=== PATIENT | female | born 2000 | race Caucasian/White ===

== ENCOUNTER 2019-10-31 10:57 | Inpatient (IN) ==
[2019-10-31] MEDS ORDERED: SODIUM CHLORIDE 0.9% 1000ML 1,000 ML IV ONE (11:36)
[2019-10-31 11:45] LABS: Basophils # (auto) 0.01 K/uL (0-0.2); Basophils % (auto) 0.1 %; Eosinophils # (auto) 0.14 K/uL (0-0.5); Eosinophils % (auto) 1.5 %; Hematocrit (blood only) 34.5 % (37-47); Hemoglobin 10.8 g/dL (12.0-16.0); Immature Granulocytes # (auto) 0.04 K/uL (0.00-0.02); Immature Granulocytes % (auto) 0.4 %; Lymphocytes % (auto) 13.9 %; Mean Corpuscular Hemoglobin 25.6 pg (25-34); Mean Corpuscular Hgb Conc 31.3 g/dL (32-36); Mean Corpuscular Volume 81.8 fL (80-100); Mean Platelet Volume 7.9 fL (7.4-10.4); Monocytes # (auto) 0.58 K/uL (0.11-0.59); Monocytes % (auto) 6.2 %; Neutrophils # (auto) 7.29 K/uL (1.4-6.5); Neutrophils % (auto) 77.9 %; Platelet Count 578 K/uL (130-400); RDW Coefficient of Variation 13.3 % (11.5-14.5); RDW Standard Deviation 40.3 fL (36.4-46.3); Red Blood Count 4.22 M/uL (4.2-5.4); White Blood Count 9.36 K/uL (4.8-10.8)
[2019-10-31 11:57] LABS: Albumin Level 2.8 gm/dl (3.4-5.0); BUN Creatinine Ratio 7.5 (10-20); Calcium 8.9 mg/dl (8.5-10.1); Creatinine Clr Calc Pharmacy 79.5 ml/min; Est GFR (African American) 101.9; Potassium 2.8 mmol/L (3.5-5.1)
[2019-10-31 11:59] LABS: Albumin Globulin Ratio 0.6 (0.9-2); Bilirubin,Total 0.3 mg/dl (0.2-1); C Reactive Protein 9.08 mg/dl (0-0.29); Globulin 4.6 gm/dl (2.5-4.0); Total Protein 7.4 gm/dl (6.4-8.2)
[2019-10-31] MEDS ORDERED: IOVERSOL 100ml IV ONE (14:09)
[2019-10-31] MEDS ORDERED: POTASSIUM CHLORIDE 20 MEQ TABCR PO STA (14:20)
[2019-10-31] MEDS ORDERED: POTASSIUM CHLORIDE / WTR 10 MEQ/100 ML PLCT IV ONE (14:20)
--- NOTE | 2019-10-31 14:22 | CT Scan Report ---
CT abd pelvis IV con only CLINICAL HISTORY: Generalized abdominal pain. History of ulcerative colitis. COMPARISON STUDY: October 15, 2019 TECHNIQUE: The patient was scanned in a dynamic helical fashion during intravenous administration of 94 cc of Optiray 320. A dose lowering technique was utilized adhering to the principles of ALARA. CT DOSE: 278.81 mGy.cm FINDINGS: Lower chest: The heart is normal in size and configuration, without pericardial effusion. The lung ba ses and pleural spaces are clear. Liver: The contrast-enhanced liver is normal in size, contour, and attenuation. There is no intrahepa tic biliary ductal dilatation. The hepatic veins and portal veins are patent. Gallbladder: Unremarkable. Spleen: Normal in size and attenuation. Pancreas: Unremarkable. Adrenal glands: Unremarkable. Kidneys: There is symmetric renal cortical enhancement. The kidneys are normal in size without hydron ephrosis. Bowel: There are no transition zones to indicate bowel obstruction. There is persistent diffuse colon ic wall thickening slightly less pronounced than when compared the preceding study. There is no pneum atosis. There is no portal venous gas. The findings are consistent with the clinical history of ulcer ative colitis. There is no evidence of acute appendicitis. Peritoneum: There is trace free pelvic fluid. There is no free intraperitoneal air Vasculature: The abdominal aorta is normal in course and caliber. Adenopathy: There are prominent ileocolic lymph nodes, likely reactive. Pelvic viscera: The bladder, and pelvic viscera are unremarkable. Skeletal structures: No destructive osseous lesions are seen. IMPRESSION: 1. No evidence of bowel obstruction. No evidence of free air 2. Persistent but slightly less pronounced diffuse colonic wall thickening, consistent with the clini ya history of ulcerative colitis. 3. No evidence of pneumatosis. No evidence of portal venous gas. ACT 112: Negative or not required by law. Electronically signed by: Adriel Gallardo M.D. 10/31/2019 2:21 PM
--- NOTE | 2019-10-31 15:31 | History & Physical Report ---
Date of Service October 31, 2019 Assessment & Plan (1) Ulcerative colitis, acute: This is a 18yo F with a PMH of ulcerative colitis, asthma, ADHD who presents from GI clinic with ulcerative colitis flare. -[place] significantly worse over the past 3 weeks despite being placed on prednisone taper. Afebrile, no leukocytosis, CRP of 9, ESR of 42 -Endorses 10-12 episodes of liquidy/loose bloody bowel movements daily with associated diffuse lower aching abdominal pain, low grade fever and chills -C diff pending - if negative, will start IV Solumedrol 20mg Q8H, per GI recommendation. Stool culture and stool WBCs also pending -CTAP with no evidence of bowel obstruction. No evidence of free air. Persistent but slightly less pronounced diffuse colonic wall thickening, consistent with the clinical history of ulcerative colitis. -Clears as tolerated, antiemetics, pain control, routine GI consult (2) Acute hypokalemia: Initial K of 2.8 in setting of GI losses. Given 10mEq K rider in ED + 60 mEq oral KCl. Will repeat BMP at 1999 (3) Anemia: Hgb of 10.8 (recent baseline hgb extremely variable from 6-12 in setting of UC). Will repeat H&H at 1999 (4) Asthma: At respiratory baseline. Does not use home inhalers at this time DVT Ppx: meliza redd Code status: FULL PCP: Recently established with [facility] Dispo: Admitted to [facility]. Plan to return home once medically stable. Patient seen in collaboration with Dr. Loomis. Please see addendum. History of Present Illness Chief Complaint: abdominal pain, sent from GI clinic for UC flare Primary Care Provider: [facility] This is a 18yo F with a PMH of ulcerative colitis, asthma, ADHD who presents from GI clinic with ulcerative colitis flare. Patient has felt significantly worse over the past 3 weeks despite being placed on prednisone taper. Endorses 10-12 episodes of liquid and loose bloody bowel movements daily with associated diffuse lower aching abdominal pain, low grade fever and chills. Also with continued poor appetite with nausea and vomiting when she does try to eat. GI service plans to start Humira. Of note, some concern from OP providers that 30 lbs weight loss may be due to the eating disorder but that patient denies any eating disorder behavior and states that she feels that her weight loss is from her UC. Endorsing diffuse abdominal pain and generalized weakness. Denies headache, lightheadedness, visual changes, chest pain, palpitations, shortness of breath, dysuria or constipation. Allergies Allergy/AdvReac Type Severity Reaction Status Date / Time animal dander Allergy Intermediate ITCHY Verified 10/31/19 12:58 EYES, SNEEZING, CONGESTION tree and shrub pollen Allergy Intermediate ITCHY Verified 10/31/19 12:58 EYES, SNEEZING, CONGESTION DUST Allergy Intermediate ITCHY Uncoded 10/31/19 12:58 EYES, SNEEZING, CONGESTION Home Medications Home Medications Medication Instructions Recorded Confirmed Type ferrous sulfate [iron] 325 mg PO DAILY 10/15/19 10/31/19 History hydrocortisone 100 mg GA HS 10/15/19 10/31/19 History dicyclomine 10 mg PO TID 10/31/19 10/31/19 History ondansetron 4 mg PO UD 10/31/19 10/31/19 History prednisone 10 mg PO .TAPER 10/31/19 10/31/19 History Past Med/Surg History Medical History Anemia Asthma Ulcerative colitis Surgical History History of colonoscopy Family History Other Family history non-contributory Social History Smoking Status: Never smoker Hx Alcohol Use: No Hx Substance Use: No Preferred Language: [place] Islander Communication Ability: Effective Residential Care Officer Required: No Beliefs That Will Affect Care: None marital status: Single Current Living Situation: Other Current Living Situation Comment: [employer] current occupational status: student Other Information That Helps Us Care for You: No Feels Safe at Home: Yes Safety Concerns: Feels Safe At This Time Review of Systems Review of Systems: At least ten systems reviewed and negative except as noted in the HPI. Physical Exam Physical Exam: General Appearance: vitals as above, thin, chronically ill appearing, conversing easily Head: normocephalic, atraumatic Eyes: normal inspection, PERRL, conjunctivae normal, anicteric sclerae ENT: external ear and nose normal, oropharynx normal Neck: normal visual inspection, trachea midline, no thyromegaly Respiratory: normal respiratory effort, lungs clear to auscultation, no wheeze, rales, rhonchi. No accessory muscle use Cardiovascular: regular rate, rhythm, no murmur, normal peripheral pulses, no BLE edema. Vessels: no JVD Chest: normal inspection of chest Abdomen/GI: normal bowel sounds, soft, TTP of LLQ and RLQ, no guarding, no hepatosplenomegaly Extremities/Musculoskeletal: no cyanosis or clubbing, extremities motor strength 5/5 Neurologic: PERRL, EOMI, accommodation nl, no face palsy, no dysarthria, CN's II-XI intact bilaterally and moves all extremities Psychiatric: A+Ox3, +anxious Skin: no rashes, normal color, warm/dry Results & Data Results & Data ([facility]) Vital Signs (Past 12 Hours) Vital Signs Temp Pulse Pulse Resp BP BP Pulse Ox 10/31/19 14:40 77 16 110/59 L 98 10/31/19 14:03 82 20 109/69 98 10/31/19 11:59 86 20 103/59 L 97 10/31/19 11:09 37.5 C 101 H 18 123/74 97 Laboratory Results Short CBC 10/31/19 Range/Units 11:20 WBC 9.36 (4.8-10.8) K/uL Hgb 10.8 L (12.0-16.0) g/dL Hct 34.5 L (37-47) % Plt Count 578 H (130-400) K/uL BMP 10/31/19 11:20 Sodium 136 Potassium 2.8 L Chloride 101 Carbon Dioxide 30 BUN 7 Creatinine 0.94 Glucose 126 H Calcium 8.9 Liver Function 10/31/19 Range/Units 11:20 Total Bilirubin 0.3 (0.2-1) mg/dl AST 5 L (15-37) U/L ALT 13 (12-78) U/L Alkaline Phosphatase 71 (45-117) U/L Albumin 2.8 L (3.4-5.0) gm/dl Urine 10/31/19 Range/Units 16:20 Urine Color Yellow Urine Appearance Clear (Clear) Urine pH 7.0 (4.5-7.5) Ur Specific Robertson > 1.045 H (1.000-1.030) Urine Protein Negative (Negative) Urine Glucose (UA) Negative (Negative) Diagnostic Findings CT abd/pelvis: IMPRESSION: 1. No evidence of bowel obstruction. No evidence of free air 2. Persistent but slightly less pronounced diffuse colonic wall thickening, consistent with the clinical history of ulcerative colitis. 3. No evidence of pneumatosis. No evidence of portal venous gas. Code Status & VTE Plan VTE Prophylaxis Plan VTE Prophylaxis will be ordered: Yes Supervising Physician Co-Signing Physician Notes Pt was seen and examined. Agreed with Christi STEELE exam, assessment and plan. 18yo F with a PMH of ulcerative colitis, asthma, ADHD was sent from GI clinic from GI clinic for ulcerative colitis flares. Pt said that she has been having bloody loose BM for the last few weeks. She has been having about 10-12 bowel movement daily associated with diffused abdominal pain associated with chills and fever. CT abd/pelvis showed no evidence of bowel obstruction. No evidence of free air Persistent but slightly less pronounced diffuse colonic wall thickening, consistent with the clinical history of ulcerative colitis. Starting on IV solumedrol 20mg q8h, K replaced. Continue IVF, pain medication antiemetic. Continue monitor electrolytes. Gastro consult. Will continue monitor closely. MD Vladislav
--- NOTE | 2019-10-31 16:28 | Emergency Department Note ---
History of Present Illness General Chief complaint: Abdominal Pain Stated complaint: ABD PAIN,VOMITING,ABNORMAL BLOODWORK Time Seen by Provider: 10/31/19 11:20 History of Present Illness Maximum Pain Intensity: 4 18-year-old female, history of ulcerative colitis, who was referred to the e mergency department from [facility] gastroenterology with complaint of abdominal pain, nausea, vomiting and weakness. The patient was seen in the office by KEY Shore who was concerned that the patient was failing outpatient management. The patient is currently on oral corticosteroids. The patient reports that she has not been able to keep any food or liquids down. She denies any significant rectal bleeding. When asked if the patient has had any recent colonoscopies, the patient believes that her last colonoscopy was approximately 1 year ago. The patient reports that she did have some labs performed yesterday, showing a low albumin level, but did have a normal WBC with increased bands. The patient also reports that her hemoglobin yesterday was 10.6. The patient has been taking Zofran ODT for nausea without any significant relief. She rates her overall discomfort a 4 out of 10. She denies any fever or chills, back pain, chest pain or headaches. Home Medications Home Medications Medication Instructions Recorded Confirmed Type ferrous sulfate [iron] 325 mg PO DAILY 10/15/19 10/31/19 History hydrocortisone 100 mg WI HS 10/15/19 10/31/19 History dicyclomine 10 mg PO TID 10/31/19 10/31/19 History ondansetron 4 mg PO UD 10/31/19 10/31/19 History prednisone 10 mg PO .TAPER 10/31/19 10/31/19 History Allergies Allergy/AdvReac Type Severity Reaction Status Date / Time animal dander Allergy Intermediate ITCHY Verified 10/31/19 12:58 EYES, SNEEZING, CONGESTION tree and shrub pollen Allergy Intermediate ITCHY Verified 10/31/19 12:58 EYES, SNEEZING, CONGESTION DUST Allergy Intermediate ITCHY Uncoded 10/31/19 12:58 EYES, SNEEZING, CONGESTION Past Med/Surg History Medical History Anemia Asthma Ulcerative colitis Surgical History History of colonoscopy Family History Other Family history non-contributory Social History Smoking Status: Never smoker Hx Alcohol Use: No Hx Substance Use: No Preferred Language: Croatian Communication Ability: Effective Claims Configuration Analyst Required: No Beliefs That Will Affect Care: None marital status: Single Current Living Situation: Other Current Living Situation Comment: [employer] current occupational status: student Other Information That Helps Us Care for You: No Feels Safe at Home: Yes Safety Concerns: Feels Safe At This Time Review of Systems 10 system review was performed and was negative except for pertinent positives and negatives as indicated in history of present illness Physical Exam Vital Signs Vital Signs - 24 hr 10/31/19 11:09 10/31/19 11:59 10/31/19 14:03 Temperature 37.5 C Temperature Source Oral Pulse Rate 101 H Pulse Rate [Right Finger] 86 82 Respiratory Rate 18 20 20 Respiratory Effort / Characteristics Non-Labored Spontaneous Non-Labored Respiratory Depth Normal Respiratory Pattern Regular Blood Pressure 123/74 Blood Pressure [Left Arm] 103/59 L 109/69 Blood Pressure Mean 90 Blood Pressure Mean [Left Arm] 73 82 Pulse Oximetry 97 97 98 Oxygen Delivery Method Room Air Room Air Room Air Sepsis Recent Fever Within 48 Hours No Sepsis New/Unexplained Change in Mental Status No Sepsis Action Taken by Nursing No Action Required 10/31/19 14:40 Temperature Temperature Source Pulse Rate Pulse Rate [Right Finger] 77 Respiratory Rate 16 Respiratory Effort / Characteristics Respiratory Depth Respiratory Pattern Blood Pressure Blood Pressure [Left Arm] 110/59 L Blood Pressure Mean Blood Pressure Mean [Left Arm] 76 Pulse Oximetry 98 Oxygen Delivery Method Sepsis Recent Fever Within 48 Hours Sepsis New/Unexplained Change in Mental Status Sepsis Action Taken by Nursing CONSTITUTIONAL: Healthy and well nourished. Patient is pale in appearance with moderate discomfort. HEENT: Normocephalic, atraumatic. Pupils equal, round and reactive. No scleral icterus, conjunctival injection or pallor. NECK: Full active range of motion without discomfort. LYMPHATICS: No cervical chain adenopathy. RESPIRATORY: Clear to auscultation bilaterally with no wheezing, crackles, rhonchi or stridor. CARDIOVASCULAR: Regular rate and rhythm with no murmurs, rubs or gallops. GASTROINTESTINAL: Bowel sounds present in all quadrants. Patient has g eneralized and nonfocal tenderness to palpation of the abdomen. Negative McBurney's point tenderness. Negative Rovsing sign. Negative CVA tenderness. MUSCULOSKELETAL: Full range of motion of all joints without discomfort. INTEGUMENTARY: No rash or other significant dermatologic conditions noted. HEMATOLOGIC: No ecchymosis or petechiae. PSYCHIATRIC: Positive affect. NEUROLOGIC: No focal neurologic deficits noted. Course Course Patient history and physical exam were performed. Nurse's notes were reviewed. Vital signs were reviewed, showing an oral temperature of 37.5 C with a heart rate of 101 bpm. The patient is normotensive. IV access was established, and labs were drawn and reviewed, showing a normal WBC with left shift and bandemia. Hemoglobin is 10.8 with a platelet count of 578. Sed rate and CRP are elevated. Potassium is 2.8, otherwise remaining CMP and lipase are normal. Urinalysis does not show hematuria or signs of infection. Urine was negative. The patient was hydrated with a liter of normal saline. She refused any antiemetics or analgesics while in the emergency department. Noncontrast CT of the abdomen and pelvis shows a mild colitis without evidence for obstruction, free air or appendicitis. Upon reevaluation, the patient reports feeling somewhat better. She denied any nausea, therefore was administer potassium chloride 60 mEq orally, as well as a K rider 10 mEq dose. Findings were discussed with Dr. Murphy, ED attending physician, who agrees with hospitalist consultation. The case was then discussed with our [facility] hospitalist team, who evaluated the patient and agrees with admission for hypokalemia, nausea and vomiting. Consultation will also likely be made with the [facility] gastroenterology service. Please see their dictations for further treatment and final disposition. Administered Medications Acetaminophen (Acetaminophen 1000 Mg/100 Ml Iv) 1,000 mg IV Q8H PRN PRN Reason: Pain Stop: 11/03/19 17:37 Last Admin: 10/31/19 17:50 Dose: 1,000 mg Documented by: [id number] Potassium Chloride/Sodium Chloride (Normal Saline W/20 Meq Kcl) 20 meq in 1,000 mls @ 125 mls/hr IV .Q8H MARV Stop: 11/30/19 17:44 Last Admin: 10/31/19 18:01 Dose: 125 mls/hr Documented by: [id number] Methylprednisolone 20 mg/ (Syringe) 0.32 mls @ 1.5 mls/min IV Q8H MARV Stop: 11/30/19 17:44 Last Admin: 10/31/19 18:00 Dose: 1.5 mls/min Documented by: [id number] Discontinued Medications Sodium Chloride (Nss 1000ml) 1,000 mls @ 999 mls/hr IV .Q1H1M ONE Stop: 10/31/19 12:36 Last Infusion: 10/31/19 13:41 Dose: 0 mls/hr Documented by: [id number] Admin: 10/31/19 11:44 Dose: 999 mls/hr Documented by: [id number] Potassium Chloride (K Jaden / Wtr) 10 meq in 100 mls @ 100 mls/hr IV ONE ONE Stop: 10/31/19 15:19 Last Infusion: 10/31/19 15:41 Dose: 0 mls/hr Documented by: [id number] Admin: 10/31/19 14:41 Dose: 100 mls/hr Documented by: [id number] Ioversol (Ioversol 100ml) 94 ml IV ONCE ONE Stop: 10/31/19 14:10 Last Admin: 10/31/19 14:09 Dose: 94 ml Documented by: [id number] Potassium Chloride (Potassium Chloride 20 Meq Tabcr) 60 meq PO NOW STA Stop: 10/31/19 14:21 Last Admin: 10/31/19 14:41 Dose: 60 meq Documented by: [id number] Medical Decision Making Medical Records Attestation: I reviewed the patient's medical records. Home Medications Current Medication List: was personally reviewed by me Laboratory Data Attestation: I reviewed the patient's lab results. Result diagrams: 10/31/19 11:20 10/31/19 11:20 Lab Results 10/31/19 10/31/19 10/31/19 Range/Units 11:20 11:20 11:20 WBC 9.36 (4.8-10.8) K/uL RBC 4.22 (4.2-5.4) M/uL Hgb 10.8 L (12.0-16.0) g/dL Hct 34.5 L (37-47) % MCV 81.8 (80-100) fL MCH 25.6 (25-34) pg MCHC 31.3 L (32-36) g/dL RDW Std Deviation 40.3 (36.4-46.3) fL RDW Coeff of Daryl 13.3 (11.5-14.5) % Plt Count 578 H (130-400) K/uL MPV 7.9 (7.4-10.4) fL Immature Gran % (Auto) 0.4 % Neut % (Auto) 77.9 % Lymph % (Auto) 13.9 % [place] % (Auto) 6.2 % Eos % (Auto) 1.5 % Baso % (Auto) 0.1 % Neut # (Auto) 7.29 H (1.4-6.5) K/uL Lymph # (Auto) 1.30 (1.2-3.4) K/uL [place] # (Auto) 0.58 (0.11-0.59) K/uL Eos # (Auto) 0.14 (0-0.5) K/uL Baso # (Auto) 0.01 (0-0.2) K/uL Immature Gran # (Auto) 0.04 H (0.00-0.02) K/uL ESR 42 H (0-21) mm/hr Sodium 136 (136-145) mmol/L Potassium 2.8 L (3.5-5.1) mmol/L Chloride 101 (98-107) mmol/L Carbon Dioxide 30 (21-32) mmol/L Anion Gap 5.0 (3-11) BUN 7 (7-18) mg/dl Creatinine 0.94 (0.6-1.2) mg/dl Est Cr Clr Drug Dosing 79.5 ml/min Est GFR ( Amer) 101.9 Est GFR (Non-Af Amer) 88.0 BUN/Creatinine Ratio 7.5 L (10-20) Glucose 126 H (70-99) mg/dl Calcium 8.9 (8.5-10.1) mg/dl Magnesium (1.8-2.4) mg/dl Total Bilirubin 0.3 (0.2-1) mg/dl AST 5 L (15-37) U/L ALT 13 (12-78) U/L Alkaline Phosphatase 71 (45-117) U/L C-Reactive Protein 9.08 H (0-0.29) mg/dl Total Protein 7.4 (6.4-8.2) gm/dl Albumin 2.8 L (3.4-5.0) gm/dl Globulin 4.6 H (2.5-4.0) gm/dl Albumin/Globulin Ratio 0.6 L (0.9-2) Lipase 86 (73-393) U/L 10/31/19 Range/Units 11:20 WBC (4.8-10.8) K/uL RBC (4.2-5.4) M/uL Hgb (12.0-16.0) g/dL Hct (37-47) % MCV (80-100) fL MCH (25-34) pg MCHC (32-36) g/dL RDW Std Deviation (36.4-46.3) fL RDW Coeff of Daryl (11.5-14.5) % Plt Count (130-400) K/uL MPV (7.4-10.4) fL Immature Gran % (Auto) % Neut % (Auto) % Lymph % (Auto) % [place] % (Auto) % Eos % (Auto) % Baso % (Auto) % Neut # (Auto) (1.4-6.5) K/uL Lymph # (Auto) (1.2-3.4) K/uL [place] # (Auto) (0.11-0.59) K/uL Eos # (Auto) (0-0.5) K/uL Baso # (Auto) (0-0.2) K/uL Immature Gran # (Auto) (0.00-0.02) K/uL ESR (0-21) mm/hr Sodium (136-145) mmol/L Potassium (3.5-5.1) mmol/L Chloride (98-107) mmol/L Carbon Dioxide (21-32) mmol/L Anion Gap (3-11) BUN (7-18) mg/dl Creatinine (0.6-1.2) mg/dl Est Cr Clr Drug Dosing ml/min Est GFR ( Amer) Est GFR (Non-Af Amer) BUN/Creatinine Ratio (10-20) Glucose (70-99) mg/dl Calcium (8.5-10.1) mg/dl Magnesium 2.2 (1.8-2.4) mg/dl Total Bilirubin (0.2-1) mg/dl AST (15-37) U/L ALT (12-78) U/L Alkaline Phosphatase (45-117) U/L C-Reactive Protein (0-0.29) mg/dl Total Protein (6.4-8.2) gm/dl Albumin (3.4-5.0) gm/dl Globulin (2.5-4.0) gm/dl Albumin/Globulin Ratio (0.9-2) Lipase (73-393) U/L Imaging Data Attestation: I personally reviewed and interpreted this imaging study as follows: My Impression: My interpretation of a CT of the abdomen and pelvis with IV contrast shows a mild colitis without evidence for obstruction, appendicitis, diverticulitis or free air. Radiologist report was also reviewed. Radiologist's Impression: CT abd pelvis IV con only CLINICAL HISTORY: Generalized abdominal pain. History of ulcerative colitis. COMPARISON STUDY: October 15, 2019 TECHNIQUE: The patient was scanned in a dynamic helical fashion during intravenous administration of 94 cc of Optiray 320. A dose lowering technique was utilized adhering to the principles of ALARA. CT DOSE: 278.81 mGy.cm FINDINGS: Lower chest: The heart is normal in size and configuration, without pericardial effusion. The lung bases and pleural spaces are clear. Liver: The contrast-enhanced liver is normal in size, contour, and attenuation. There is no intrahepatic biliary ductal dilatation. The hepatic veins and portal veins are patent. Gallbladder: Unremarkable. Spleen: Normal in size and attenuation. Pancreas: Unremarkable. Adrenal glands: Unremarkable. Kidneys: There is symmetric renal cortical enhancement. The kidneys are normal in size without hydronephrosis. Bowel: There are no transition zones to indicate bowel obstruction. There is persistent diffuse colonic wall thickening slightly less pronounced than when compared the preceding study. There is no pneumatosis. There is no portal venous gas. The findings are consistent with the clinical history of ulcerative colitis. There is no evidence of acute appendicitis. Peritoneum: There is trace free pelvic fluid. There is no free intraperitoneal air Vasculature: The abdominal aorta is normal in course and caliber. Adenopathy: There are prominent ileocolic lymph nodes, likely reactive. Pelvic viscera: The bladder, and pelvic viscera are unremarkable. Skeletal structures: No destructive osseous lesions are seen. IMPRESSION: 1. No evidence of bowel obstruction. No evidence of free air 2. Persistent but slightly less pronounced diffuse colonic wall thickening, consistent with the clinical history of ulcerative colitis. 3. No evidence of pneumatosis. No evidence of portal venous gas. Blood Pressure Blood Pressure Findings: Normal blood pressure MDM Narrative Patient presents the emergency department for evaluation of failure of outpatient management for her ulcerative colitis. The patient is currently on corticosteroids. CT imaging today does not show evidence for free air or obstruction. There is also no evidence for diverticulitis, appendicitis or other acute intra-abdominal etiologies. Urinalysis is not consistent with infection, and urine was negative. Additional laboratory studies are not suggestive of pancreatitis, cholecystitis or hepatitis. The patient is anemic. She is also hypokalemic, and will need to be repleted. Impression & Plan Acute hypokalemia, Anemia, Nausea vomiting and diarrhea, Ulcerative colitis Discharge Plan Visit Data Chief Complaint: Abdominal Pain Stated Complaint: ABD PAIN,VOMITING,ABNORMAL BLOODWORK ED Provider: Quinton Murphy ED Midlevel Provider: Barrington Villarreal Discharge Problem: Acute hypokalemia, Anemia, Nausea vomiting and diarrhea, Ulcerative colitis Patient Disposition: Admitted As Inpatient Discharge Instructions Interventions: ED Discharge Assessment Last Done: 10/31/19 16:58
[2019-10-31 16:43] LABS: Appearance Urine Clear (Clear); Bilirubin Urine Negative (Negative); Blood Urine Negative (Negative); Color Urine Yellow; Glucose Urine UA Negative (Negative); Ketones Urine Trace (Negative); Leukocyte Esterase Urine Negative (Negative); Nitrite Urine Negative (Negative); Protein Urine Negative (Negative); Specific Gravity Urine > 1.045 (1.000-1.030); Urobilinogen Urine Negative (Negative)
[2019-10-31 16:45] LABS: Pregnancy Test, Urine Negative (Negative)
[2019-10-31] MEDS ORDERED: ONDANSETRON INJ 2 MG/ML 2 ML VIAL IV PRN (17:27)
[2019-10-31] MEDS ORDERED: ACETAMINOPHEN 1000 MG/100 ML IV IV PRN (17:38)
[2019-10-31] MEDS: methylPREDNISolone 20 MG in SYRINGE 0 ML IV SCH (18:00)
[2019-10-31] MEDS: NSS + 20MEQ KCL 20 MEQ/1,000 ML BAG IV SCH (18:01)
[2019-10-31 18:24] LABS: Hematocrit (blood only) 28.1 % (37-47)
[2019-10-31 19:59] LABS: Hematocrit (blood only) 25.3 % (37-47); Hemoglobin 8.3 g/dL (12.0-16.0)
[2019-10-31 20:27] LABS: BUN Creatinine Ratio 6.6 (10-20); Blood Urea Nitrogen 4 mg/dl (7-18); Calcium 8.6 mg/dl (8.5-10.1); Carbon Dioxide 25 mmol/L (21-32); Chloride 109 mmol/L (98-107); Creatinine Clr Calc Pharmacy 120.5 ml/min; Est GFR (African American) > 150.0; Est GFR (Non-African American) 130.7; Glucose 110 mg/dl (70-99); Potassium 4.1 mmol/L (3.5-5.1); Sodium 139 mmol/L (136-145)
[2019-10-31] MEDS ORDERED: SODIUM CHLORIDE 0.9% 250 ML IV PRN (20:53)
[2019-11-01] MEDS: NSS + 20MEQ KCL 20 MEQ/1,000 ML BAG IV SCH ×3 (01:59→20:21)
[2019-11-01] MEDS: methylPREDNISolone 20 MG in SYRINGE 0 ML IV SCH ×3 (02:02→18:15)
[2019-11-01 07:41] LABS: Hematocrit (blood only) 28.8 % (37-47); Hemoglobin 9.1 g/dL (12.0-16.0); Mean Corpuscular Hemoglobin 25.6 pg (25-34); Mean Corpuscular Hgb Conc 31.6 g/dL (32-36); Mean Corpuscular Volume 81.1 fL (80-100); Mean Platelet Volume 7.9 fL (7.4-10.4); Platelet Count 497 K/uL (130-400); RDW Coefficient of Variation 13.1 % (11.5-14.5); Red Blood Count 3.55 M/uL (4.2-5.4); White Blood Count 11.54 K/uL (4.8-10.8)
[2019-11-01 08:08] LABS: Albumin Level 2.2 gm/dl (3.4-5.0); Aspartate Aminotransferase 7 U/L (15-37); BUN Creatinine Ratio 7.1 (10-20); Blood Urea Nitrogen 4 mg/dl (7-18); Calcium 9.2 mg/dl (8.5-10.1); Carbon Dioxide 25 mmol/L (21-32); Chloride 104 mmol/L (98-107); Creatinine Clr Calc Pharmacy 146.7 ml/min; Est GFR (African American) > 150.0; Est GFR (Non-African American) 138.5; Glucose 104 mg/dl (70-99); Potassium 4.4 mmol/L (3.5-5.1); Sodium 137 mmol/L (136-145)
--- NOTE | 2019-11-01 08:12 | Hospitalist Progress Note ---
Date of Service November 01, 2019 Assessment & Plan (1) Ulcerative colitis, acute: This is a 18 yo F with a PMH of ulcerative colitis, asthma, ADHD who presents from GI clinic with ulcerative colitis flare. -[place] significantly worse over the past 3 weeks despite being placed on prednisone taper. Afebrile, no leukocytosis, CRP of 9, ESR of 42 -Endorses 10-12 episodes of liquidy/loose bloody bowel movements daily with associated diffuse lower aching abdominal pain, low grade fever and chills -C diff negative -Started IV Solumedrol 20mg Q8H, per GI recommendation. Stool culture and stool WBCs also pending -CTAP with no evidence of bowel obstruction. No evidence of free air. Persistent but slightly less pronounced diffuse colonic wall thickening, consistent with the clinical history of ulcerative colitis. -Clears as tolerated, antiemetics, pain control, routine GI consult -Currently patient feels little better, had 4 bowel movements since admission, 2 last ones were nonbloody, tolerates clear liquid diet (2) Acute hypokalemia: Initial K of 2.8 in setting of GI losses. Given 10mEq K rider in ED + 60 mEq oral KCl. Current potassium 4.4 Continue to monitor (3) Anemia: Hgb of 10.8 on admission (recent baseline hgb extremely variable from 6-12 in setting of UC). Monitor H&H, current hemoglobin 9.1 (4) Asthma: At respiratory baseline. Does not use home inhalers at this time DVT Ppx: meliza redd Code status: FULL PCP: Recently established with [facility] Dispo: Admitted to [facility]. Plan to return home once medically stable. Admission and Anticipated Discharge Date Admission Date: October 31, 2019 Subjective Patient is sitting up in the bed, in no acute distress. She was started on IV Solu-Medrol on admission. C. diff negative. States she had 4 bowel movements, 2 last ones were nonbloody. Continues to have chronic mild lower abdominal discomfort. Tolerates clear liquid diet. Review of Systems Review of Systems: All systems reviewed & are unremarkable except as noted in HPI & below Constitutional: no fever and no chills Respiratory: no cough and no dyspnea Cardiovascular: no chest pain and no palpitations Gastrointestinal: + nausea, + diarrhea/loose stools and + blood in stools; no abdominal pain and no vomiting Physical Exam Physical Exam: General Appearance: Young thin female, sitting up in bed, in no acute distress, + chronically ill appearing, pale Head: normocephalic, atraumatic Eyes: normal inspection, PERRL, EOMI, conjunctivae normal, anicteric sclerae ENT: external ear and nose normal, oropharynx normal Neck: normal visual inspection, trachea midline, no thyromegaly Respiratory: normal respiratory effort, lungs clear to auscultation, no wheeze, rales, rhonchi. No accessory muscle use Cardiovascular: regular rate, rhythm, no murmur, normal peripheral pulses, no BLE edema. Vessels: no JVD Chest: normal inspection of chest Abdomen/GI: normal bowel sounds, soft, TTP of LLQ and RLQ, no guarding Extremities/Musculoskeletal: extremities motor strength 5/5, moves extremities spontaneously Neurologic: PERRL, EOMI, no face palsy, no dysarthria,moves all extremities Psychiatric: A+Ox3, answers questions appropriately Skin: no rashes, normal color, warm/dry Results & Data Results & Data ([facility]) Vital Signs (Past 12 Hours) Vital Signs Temp Pulse Pulse Resp BP Pulse Ox 11/01/19 07:52 55 L 11/01/19 07:13 36.9 C 50 L 16 113/67 99 11/01/19 03:52 36.7 C 52 L 16 102/57 L 97 10/31/19 23:17 37 C 67 18 119/69 100 Laboratory Results 11/01/19 11/01/19 10/31/19 Range/Units 07:00 07:00 Unknown WBC 11.54 H (4.8-10.8) K/uL RBC 3.55 L (4.2-5.4) M/uL Hgb 9.1 L (12.0-16.0) g/dL Hct 28.8 L (37-47) % MCV 81.1 (80-100) fL MCH 25.6 (25-34) pg MCHC 31.6 L (32-36) g/dL RDW Std Deviation 39.0 (36.4-46.3) fL RDW Coeff of Daryl 13.1 (11.5-14.5) % Plt Count 497 H (130-400) K/uL MPV 7.9 (7.4-10.4) fL Immature Gran % (Auto) % Neut % (Auto) % Lymph % (Auto) % Harnett % (Auto) % Eos % (Auto) % Baso % (Auto) % Neut # (Auto) (1.4-6.5) K/uL Lymph # (Auto) (1.2-3.4) K/uL Harnett # (Auto) (0.11-0.59) K/uL Eos # (Auto) (0-0.5) K/uL Baso # (Auto) (0-0.2) K/uL Immature Gran # (Auto) (0.00-0.02) K/uL ESR (0-21) mm/hr Sodium 137 (136-145) mmol/L Potassium 4.4 (3.5-5.1) mmol/L Chloride 104 (98-107) mmol/L Carbon Dioxide 25 (21-32) mmol/L Anion Gap 8.0 (3-11) BUN 4 L (7-18) mg/dl Creatinine 0.52 L (0.6-1.2) mg/dl Est Cr Clr Drug Dosing 146.7 ml/min Est GFR ( Amer) > 150.0 Est GFR (Non-Af Amer) 138.5 BUN/Creatinine Ratio 7.1 L (10-20) Glucose 104 H (70-99) mg/dl Calcium 9.2 (8.5-10.1) mg/dl Magnesium (1.8-2.4) mg/dl Total Bilirubin Pending (0.2-1) mg/dl AST 7 L (15-37) U/L ALT Pending (12-78) U/L Alkaline Phosphatase Pending (45-117) U/L C-Reactive Protein (0-0.29) mg/dl Total Protein Pending (6.4-8.2) gm/dl Albumin 2.2 L (3.4-5.0) gm/dl Globulin Pending (2.5-4.0) gm/dl Albumin/Globulin Ratio Pending (0.9-2) Lipase (73-393) U/L Urine Color Urine Appearance (Clear) Urine pH (4.5-7.5) Ur Specific Voca (1.000-1.030) Urine Protein (Negative) Urine Glucose (UA) (Negative) Urine Ketones (Negative) Urine Blood (Negative) Urine Nitrite (Negative) Urine Bilirubin (Negative) Urine Urobilinogen (Negative) Ur Leukocyte Esterase (Negative) Urine Test (Negative) Stool Occult Bld Scrn Positive A (Negative) Stl C. diff Tox B Gene (Neg) Blood Type Antibody Screen Crossmatch 10/31/19 10/31/19 10/31/19 Range/Units 21:10 19:47 19:47 WBC (4.8-10.8) K/uL RBC (4.2-5.4) M/uL Hgb 8.3 L (12.0-16.0) g/dL Hct 25.3 L (37-47) % MCV (80-100) fL MCH (25-34) pg MCHC (32-36) g/dL RDW Std Deviation (36.4-46.3) fL RDW Coeff of Daryl (11.5-14.5) % Plt Count (130-400) K/uL MPV (7.4-10.4) fL Immature Gran % (Auto) % Neut % (Auto) % Lymph % (Auto) % Harnett % (Auto) % Eos % (Auto) % Baso % (Auto) % Neut # (Auto) (1.4-6.5) K/uL Lymph # (Auto) (1.2-3.4) K/uL [place] # (Auto) (0.11-0.59) K/uL Eos # (Auto) (0-0.5) K/uL Baso # (Auto) (0-0.2) K/uL Immature Gran # (Auto) (0.00-0.02) K/uL ESR (0-21) mm/hr Sodium 139 (136-145) mmol/L Potassium 4.1 D (3.5-5.1) mmol/L Chloride 109 H (98-107) mmol/L Carbon Dioxide 25 (21-32) mmol/L Anion Gap 5.0 (3-11) BUN 4 L (7-18) mg/dl Creatinine 0.62 D (0.6-1.2) mg/dl Est Cr Clr Drug Dosing 120.5 ml/min Est GFR ( Amer) > 150.0 Est GFR (Non-Af Amer) 130.7 BUN/Creatinine Ratio 6.6 L (10-20) Glucose 110 H (70-99) mg/dl Calcium 8.6 (8.5-10.1) mg/dl Magnesium (1.8-2.4) mg/dl Total Bilirubin (0.2-1) mg/dl AST (15-37) U/L ALT (12-78) U/L Alkaline Phosphatase (45-117) U/L C-Reactive Protein (0-0.29) mg/dl Total Protein (6.4-8.2) gm/dl Albumin (3.4-5.0) gm/dl Globulin (2.5-4.0) gm/dl Albumin/Globulin Ratio (0.9-2) Lipase (73-393) U/L Urine Color Urine Appearance (Clear) Urine pH (4.5-7.5) Ur Specific Voca (1.000-1.030) Urine Protein (Negative) Urine Glucose (UA) (Negative) Urine Ketones (Negative) Urine Blood (Negative) Urine Nitrite (Negative) Urine Bilirubin (Negative) Urine Urobilinogen (Negative) Ur Leukocyte Esterase (Negative) Urine Test (Negative) Stool Occult Bld Scrn (Negative) Stl C. diff Tox B Gene (Neg) Blood Type A Positive Antibody Screen NEGATIVE Crossmatch See Detail 10/31/19 10/31/19 10/31/19 Range/Units 18:16 16:20 16:20 WBC (4.8-10.8) K/uL RBC (4.2-5.4) M/uL Hgb 9.0 L (12.0-16.0) g/dL Hct 28.1 L (37-47) % MCV (80-100) fL MCH (25-34) pg MCHC (32-36) g/dL RDW Std Deviation (36.4-46.3) fL RDW Coeff of Daryl (11.5-14.5) % Plt Count (130-400) K/uL MPV (7.4-10.4) fL Immature Gran % (Auto) % Neut % (Auto) % Lymph % (Auto) % [place]arnett % (Auto) % Eos % (Auto) % Baso % (Auto) % Neut # (Auto) (1.4-6.5) K/uL Lymph # (Auto) (1.2-3.4) K/uL [place] # (Auto) (0.11-0.59) K/uL Eos # (Auto) (0-0.5) K/uL Baso # (Auto) (0-0.2) K/uL Immature Gran # (Auto) (0.00-0.02) K/uL ESR (0-21) mm/hr Sodium (136-145) mmol/L Potassium (3.5-5.1) mmol/L Chloride (98-107) mmol/L Carbon Dioxide (21-32) mmol/L Anion Gap (3-11) BUN (7-18) mg/dl Creatinine (0.6-1.2) mg/dl Est Cr Clr Drug Dosing ml/min Est GFR ( Amer) Est GFR (Non-Af Amer) BUN/Creatinine Ratio (10-20) Glucose (70-99) mg/dl Calcium (8.5-10.1) mg/dl Magnesium (1.8-2.4) mg/dl Total Bilirubin (0.2-1) mg/dl AST (15-37) U/L ALT (12-78) U/L Alkaline Phosphatase (45-117) U/L C-Reactive Protein (0-0.29) mg/dl Total Protein (6.4-8.2) gm/dl Albumin (3.4-5.0) gm/dl Globulin (2.5-4.0) gm/dl Albumin/Globulin Ratio (0.9-2) Lipase (73-393) U/L Urine Color Urine Appearance (Clear) Urine pH (4.5-7.5) Ur Specific Voca (1.000-1.030) Urine Protein (Negative) Urine Glucose (UA) (Negative) Urine Ketones (Negative) Urine Blood (Negative) Urine Nitrite (Negative) Urine Bilirubin (Negative) Urine Urobilinogen (Negative) Ur Leukocyte Esterase (Negative) Urine Test Negative (Negative) Stool Occult Bld Scrn (Negative) Stl C. diff Tox B Gene Negative Cdiff Gene (Neg) Blood Type Antibody Screen Crossmatch 10/31/19 10/31/19 10/31/19 Range/Units 16:20 11:20 11:20 WBC (4.8-10.8) K/uL RBC (4.2-5.4) M/uL Hgb (12.0-16.0) g/dL Hct (37-47) % MCV (80-100) fL MCH (25-34) pg MCHC (32-36) g/dL RDW Std Deviation (36.4-46.3) fL RDW Coeff of Daryl (11.5-14.5) % Plt Count (130-400) K/uL MPV (7.4-10.4) fL Immature Gran % (Auto) % Neut % (Auto) % Lymph % (Auto) % [place] % (Auto) % Eos % (Auto) % Baso % (Auto) % Neut # (Auto) (1.4-6.5) K/uL Lymph # (Auto) (1.2-3.4) K/uL [place]ett # (Auto) (0.11-0.59) K/uL Eos # (Auto) (0-0.5) K/uL Baso # (Auto) (0-0.2) K/uL Immature Gran # (Auto) (0.00-0.02) K/uL ESR 42 H (0-21) mm/hr Sodium (136-145) mmol/L Potassium (3.5-5.1) mmol/L Chloride (98-107) mmol/L Carbon Dioxide (21-32) mmol/L Anion Gap (3-11) BUN (7-18) mg/dl Creatinine (0.6-1.2) mg/dl Est Cr Clr Drug Dosing ml/min Est GFR ( Amer) Est GFR (Non-Af Amer) BUN/Creatinine Ratio (10-20) Glucose (70-99) mg/dl Calcium (8.5-10.1) mg/dl Magnesium 2.2 (1.8-2.4) mg/dl Total Bilirubin (0.2-1) mg/dl AST (15-37) U/L ALT (12-78) U/L Alkaline Phosphatase (45-117) U/L C-Reactive Protein (0-0.29) mg/dl Total Protein (6.4-8.2) gm/dl Albumin (3.4-5.0) gm/dl Globulin (2.5-4.0) gm/dl Albumin/Globulin Ratio (0.9-2) Lipase (73-393) U/L Urine Color Yellow Urine Appearance Clear (Clear) Urine pH 7.0 (4.5-7.5) Ur Specific Voca > 1.045 H (1.000-1.030) Urine Protein Negative (Negative) Urine Glucose (UA) Negative (Negative) Urine Ketones Trace H (Negative) Urine Blood Negative (Negative) Urine Nitrite Negative (Negative) Urine Bilirubin Negative (Negative) Urine Urobilinogen Negative (Negative) Ur Leukocyte Esterase Negative (Negative) Urine Test (Negative) Stool Occult Bld Scrn (Negative) Stl C. diff Tox B Gene (Neg) Blood Type Antibody Screen Crossmatch 10/31/19 10/31/19 Range/Units 11:20 11:20 WBC 9.36 (4.8-10.8) K/uL RBC 4.22 (4.2-5.4) M/uL Hgb 10.8 L (12.0-16.0) g/dL Hct 34.5 L (37-47) % MCV 81.8 (80-100) fL MCH 25.6 (25-34) pg MCHC 31.3 L (32-36) g/dL RDW Std Deviation 40.3 (36.4-46.3) fL RDW Coeff of Daryl 13.3 (11.5-14.5) % Plt Count 578 H (130-400) K/uL MPV 7.9 (7.4-10.4) fL Immature Gran % (Auto) 0.4 % Neut % (Auto) 77.9 % Lymph % (Auto) 13.9 % H[place]ett % (Auto) 6.2 % Eos % (Auto) 1.5 % Baso % (Auto) 0.1 % Neut # (Auto) 7.29 H (1.4-6.5) K/uL Lymph # (Auto) 1.30 (1.2-3.4) K/uL [place]ett # (Auto) 0.58 (0.11-0.59) K/uL Eos # (Auto) 0.14 (0-0.5) K/uL Baso # (Auto) 0.01 (0-0.2) K/uL Immature Gran # (Auto) 0.04 H (0.00-0.02) K/uL ESR (0-21) mm/hr Sodium 136 (136-145) mmol/L Potassium 2.8 L (3.5-5.1) mmol/L Chloride 101 (98-107) mmol/L Carbon Dioxide 30 (21-32) mmol/L Anion Gap 5.0 (3-11) BUN 7 (7-18) mg/dl Creatinine 0.94 (0.6-1.2) mg/dl Est Cr Clr Drug Dosing 79.5 ml/min Est GFR ( Amer) 101.9 Est GFR (Non-Af Amer) 88.0 BUN/Creatinine Ratio 7.5 L (10-20) Glucose 126 H (70-99) mg/dl Calcium 8.9 (8.5-10.1) mg/dl Magnesium (1.8-2.4) mg/dl Total Bilirubin 0.3 (0.2-1) mg/dl AST 5 L (15-37) U/L ALT 13 (12-78) U/L Alkaline Phosphatase 71 (45-117) U/L C-Reactive Protein 9.08 H (0-0.29) mg/dl Total Protein 7.4 (6.4-8.2) gm/dl Albumin 2.8 L (3.4-5.0) gm/dl Globulin 4.6 H (2.5-4.0) gm/dl Albumin/Globulin Ratio 0.6 L (0.9-2) Lipase 86 (73-393) U/L Urine Color Urine Appearance (Clear) Urine pH (4.5-7.5) Ur Specific Voca (1.000-1.030) Urine Protein (Negative) Urine Glucose (UA) (Negative) Urine Ketones (Negative) Urine Blood (Negative) Urine Nitrite (Negative) Urine Bilirubin (Negative) Urine Urobilinogen (Negative) Ur Leukocyte Esterase (Negative) Urine Test (Negative) Stool Occult Bld Scrn (Negative) Stl C. diff Tox B Gene (Neg) Blood Type Antibody Screen Crossmatch Medications Administered Current Inpatient Medications Acetaminophen (Acetaminophen 1000 Mg/100 Ml Iv) 1,000 mg IV Q8H PRN PRN Reason: Pain Stop: 11/03/19 17:37 Last Admin: 10/31/19 17:50 Dose: 1,000 mg Documented by: Ferrous Sulfate (Ferrous Sulfate 325 Mg Tab) 325 mg PO DAILY MARV Stop: 12/01/19 08:59 Potassium Chloride/Sodium Chloride (Normal Saline W/20 Meq Kcl) 20 meq in 1,000 mls @ 125 mls/hr IV .Q8H MARV Stop: 11/30/19 17:44 Last Admin: 11/01/19 01:59 Dose: 125 mls/hr Documented by: Methylprednisolone 20 mg/ (Syringe) 0.32 mls @ 1.5 mls/min IV Q8H MARV Stop: 11/30/19 17:44 Last Admin: 11/01/19 02:02 Dose: 1.5 mls/min Documented by: Ondansetron HCl (Ondansetron Inj 2 Mg/Ml 2 Ml Vial) 4 mg IV Q6H PRN PRN Reason: Nausea Stop: 11/30/19 17:26 Tramadol HCl (Tramadol Hcl 50 Mg Tablet) 50 mg PO Q8H PRN PRN Reason: Pain Stop: 11/30/19 21:52
[2019-11-01 08:13] LABS: Alanine Aminotransferase 11 U/L (12-78); Albumin Globulin Ratio 0.6 (0.9-2); Alkaline Phosphatase 55 U/L (45-117); Bilirubin,Total 0.4 mg/dl (0.2-1); Globulin 3.6 gm/dl (2.5-4.0); Total Protein 5.8 gm/dl (6.4-8.2)
[2019-11-01] MEDS ORDERED: FERROUS SULFATE 325 MG TAB PO SCH (09:00)
[2019-11-01] MEDS: TRAMADOL HCL 50 MG TABLET PO PRN (09:06)
--- NOTE | 2019-11-01 09:15 | Gastrointestinal Consultation ---
Date of Consultation November 01, 2019 Assessment & Plan (1) Ulcerative colitis, acute: 18 year old female with a PMH of ulcerative colitis, asthma, ADHD who presents from GI clinic with ulcerative colitis flare, failed outpatient therapy. CT w/ active inflammatory changes, CRP of 9, ESR of 42 w/ ongoing liquidy/loose bloody bowel movements daily with associated diffuse lower aching abdominal pain, low grade fever and chills. - C diff negative - Culture pending - Can continue solumedrol 20mg Q8H - Clears as tolerated - Antiemetics - analgesia - Can trial Levsin QID - Continue with plan to start OP humira Thank you for allowing us to participate in the care of this patient. Please call with any acute changes, questions or concerns. Please see addendum below with additional recommendation from my supervising physician. Supervising Physician Co-Signing Physician Notes I have personally seen and examined the patient with KEY Aguilar. Her note reflects my exam and findings. I agree with her impression and plan. Already improving on IV steroids. Needs to start Humira. Spencer To M.D. History of Present Illness Reason for Consultation: UC Requesting Physician: Aretha Attending Physician: Ravinder Carias MD History of Present Illness 18 year old female with history of UC presenting w/ failed OP therapy w/ abd pain and bloody diarrhea x February. Pt was seen and evaluated, chart reviewed. Notes despite OP prednisone and bentyl has had ongoing abd pain, w/ BM, bloody diarrhea and nocturnal BM. In the ED, stools sent and negative to date including cdiff, CTAP w/ colonic wall thickening. Since starting bowel rest and IV steroids, symptoms improved. Less pain. Less BM. Suggests no stool yet this AM, went twice overnight. No blood in more recent BM which is new. Tolerating PO although endorses decreased appetite. No fever, chills, CP, SOB. Allergies Allergy/AdvReac Type Severity Reaction Status Date / Time animal dander Allergy Intermediate ITCHY Verified 10/31/19 12:58 EYES, SNEEZING, CONGESTION tree and shrub pollen Allergy Intermediate ITCHY Verified 10/31/19 12:58 EYES, SNEEZING, CONGESTION DUST Allergy Intermediate ITCHY Uncoded 10/31/19 12:58 EYES, SNEEZING, CONGESTION Home Medications Home Medications Medication Instructions Recorded Confirmed Type ferrous sulfate [iron] 325 mg PO DAILY 10/15/19 10/31/19 History hydrocortisone 100 mg FL HS 10/15/19 10/31/19 History dicyclomine 10 mg PO TID 10/31/19 10/31/19 History ondansetron 4 mg PO UD 10/31/19 10/31/19 History prednisone 10 mg PO .TAPER 10/31/19 10/31/19 History Patient History Medical History Anemia Asthma Ulcerative colitis Surgical History History of colonoscopy Family History Other Family history non-contributory Social History Smoking Status: Never smoker Hx Alcohol Use: No Hx Substance Use: No Preferred Language: Bruneian Communication Ability: Effective Firmware Developer Required: No Beliefs That Will Affect Care: None marital status: Single Current Living Situation: Other Current Living Situation Comment: roomates current occupational status: student Other Information That Helps Us Care for You: No Feels Safe at Home: Yes Safety Concerns: Feels Safe At This Time Review of Systems Constitutional: no fever and no body aches Respiratory: no cough and no dyspnea Cardiovascular: no chest pain Gastrointestinal: + abdominal pain and + blood in stools Physical Exam Constitutional: WD/WN, vitals as above Neck: trachea midline Respiratory: normal respiratory effort Cardiovascular: Rate/Rhythm: regular rate Gastrointestinal (Abdomen): Percussion/Palpation: + abdomen tender and abdomen soft Skin: no rashes, warm and dry Results & Data ([facility]) Vital Signs (Past 12 Hours) Vital Signs Temp Pulse Pulse Resp BP Pulse Ox 11/01/19 07:52 55 L 11/01/19 07:13 36.9 C 50 L 16 113/67 99 11/01/19 03:52 36.7 C 52 L 16 102/57 L 97 10/31/19 23:17 37 C 67 18 119/69 100
[2019-11-02] MEDS: methylPREDNISolone 20 MG in SYRINGE 0 ML IV SCH ×3 (02:13→17:39)
[2019-11-02] MEDS: NSS + 20MEQ KCL 20 MEQ/1,000 ML BAG IV SCH ×2 (05:37→19:01)
[2019-11-02 07:52] LABS: Hematocrit (blood only) 28.6 % (37-47); Mean Corpuscular Hemoglobin 25.4 pg (25-34); Mean Corpuscular Hgb Conc 31.5 g/dL (32-36); Mean Corpuscular Volume 80.8 fL (80-100); Mean Platelet Volume 7.9 fL (7.4-10.4); Platelet Count 483 K/uL (130-400); RDW Coefficient of Variation 13.2 % (11.5-14.5); RDW Standard Deviation 39.4 fL (36.4-46.3); Red Blood Count 3.54 M/uL (4.2-5.4); White Blood Count 9.67 K/uL (4.8-10.8)
[2019-11-02 09:04] LABS: Alanine Aminotransferase 10 U/L (12-78); Albumin Level 2.3 gm/dl (3.4-5.0); Aspartate Aminotransferase 6 U/L (15-37); BUN Creatinine Ratio 5.5 (10-20); Blood Urea Nitrogen 3 mg/dl (7-18); Carbon Dioxide 30 mmol/L (21-32); Chloride 104 mmol/L (98-107); Creatinine Clr Calc Pharmacy 137.1 ml/min; Est GFR (African American) > 150.0; Glucose 117 mg/dl (70-99); Potassium 4.4 mmol/L (3.5-5.1); Sodium 138 mmol/L (136-145)
[2019-11-02 09:07] LABS: Albumin Globulin Ratio 0.6 (0.9-2); Alkaline Phosphatase 58 U/L (45-117); Bilirubin,Total 0.3 mg/dl (0.2-1); Globulin 3.8 gm/dl (2.5-4.0); Total Protein 6.1 gm/dl (6.4-8.2)
--- NOTE | 2019-11-02 09:25 | Gastroenterology Progress Note ---
Date of Service November 02, 2019 Assessment & Plan (1) Ulcerative colitis, acute: 18 year old female with a PMH of ulcerative colitis, asthma, ADHD who presents from GI clinic with ulcerative colitis flare, failed outpatient therapy. CT w/ active inflammatory changes, CRP of 9, ESR of 42 w/ ongoing liquidy/loose bloody bowel movements daily with associated diffuse lower aching abdominal pain, low grade fever and chills. - C diff negative - Culture pending - Can continue solumedrol 20mg Q8H - Please send home on a slow taper as we start to initiate humira - 40 mg x 3 weeks then can decrease by 5 mg weekly - Clears as tolerated can advance to low reside - Antiemetics - PO analgesia - Can trial Levsin QID - Continue with plan to start OP humira, I contacted our nurses as this was approved and to be delivered /wednesday to set up injection teaching Will sign off. Can be discharged home if tolerates diet advancement Thank you for allowing us to participate in the care of this patient. Please call with any acute changes, questions or concerns. Please see addendum below with additional recommendation from my supervising physician. Admission and Anticipated Discharge Date Admission Date: October 31, 2019 Supervising Physician Co-Signing Physician Notes I have personally seen and examined the patient with KEY Aguilar. Her note reflects my exam and findings. I agree with her impression and plan. Slowly improving. Less BMs. Wants to try light diet. Cont IV steroids. Spencer To M.D. Subjective Feeling better only 2 bm overnight no bm yet this AM more formed less blood less abd pain some cramping w/ po wants to try low residue Review of Systems Constitutional: no fever, no chills and no fatigue Respiratory: no cough and no dyspnea Cardiovascular: no chest pain Gastrointestinal: + diarrhea/loose stools and + blood in stools; no abdominal pain Physical Exam Constitutional: WD/WN, vitals as above Neck: trachea midline Respiratory: normal respiratory effort Cardiovascular: Rate/Rhythm: regular rate Gastrointestinal (Abdomen): Percussion/Palpation: + abdomen tender and abdomen soft Skin: no rashes, warm and dry Results & Data ([facility]) Vital Signs (Past 12 Hours) Vital Signs Temp Pulse Pulse Resp BP Pulse Ox 11/02/19 07:30 36.5 C 66 20 117/78 100 09/17/20 07:24 59 L 11/02/19 04:09 36.8 C 65 18 101/66 98 11/02/19 00:00 60
[2019-11-02] MEDS ORDERED: HYDROmorphone INJ 0.5 MG/0.5 ML SYR IV PRN (10:42)
[2019-11-02] MEDS ORDERED: HYDROmorphone INJ 0.5 MG/0.5 ML SYR ONE (10:46)
--- NOTE | 2019-11-02 15:32 | Hospitalist Progress Note ---
Date of Service November 02, 2019 Assessment & Plan (1) Ulcerative colitis, acute: This is a 18 yo F with a PMH of ulcerative colitis, asthma, ADHD who presents from GI clinic with ulcerative colitis flare. Diagnosed in February following colonoscopy and biopsy She does not have any extraintestinal manifestations of ulcerative colitis [place] significantly worse over the past 3 weeks despite being placed on prednisone taper. Afebrile, no leukocytosis, CRP of 9, ESR of 42 C diff negative Started IV Solumedrol 20mg Q8H, per GI recommendation. CTAP with no evidence of bowel obstruction. No evidence of free air. Persistent but slightly less pronounced diffuse colonic wall thickening, consistent with the clinical history of ulcerative colitis. Has been tolerating clears and will advance as tolerated (2) Acute hypokalemia: Initial K of 2.8 in setting of GI losses. Given 10mEq K rider in ED + 60 mEq oral KCl. Current potassium 4.4 Continue to monitor (3) Anemia: Hgb of 10.8 on admission (recent baseline hgb extremely variable from 6-12 in setting of UC). Monitor H&H, current hemoglobin 9.1 (4) Asthma: At respiratory baseline. Does not use home inhalers at this time No acute symptoms DVT Ppx: meliza redd Code status: FULL PCP: Recently established with [facility] Dispo: Admitted to [facility]. Plan to return home once medically stable. Likely be discharged tomorrow Admission and Anticipated Discharge Date Admission Date: October 31, 2019 Subjective 11/02/2019 The patient was seen and examined in medical floor She has been complaining of abdominal pain with ongoing diarrhea and some blood in it Denies any nausea and or vomiting Review of Systems Review of Systems: All systems reviewed and are unremarkable except as noted below Gastrointestinal: + abdominal pain, + bloating, + diarrhea/loose stools and + blood in stools; no nausea and no vomiting Physical Exam Physical Exam: Lying in bed comfortably Constitutional: well developed, well nourished, + acute distress (Due to abdominal discomfort) and + ill appearing Eyes: PERRL, conjunctivae normal, anicteric sclerae ENMT: external ear and nose normal, oropharynx normal Neck: trachea midline, no thyromegaly Respiratory: normal respiratory effort and + respiratory distress Auscultation: lungs clear to auscultation bilaterally Cardiovascular: Rate/Rhythm: regular rate and regular rhythm Heart Sounds: no murmur Gastrointestinal (Abdomen): Inspection/Auscultation: + abdomen distended (Minimally distended) and normal bowel sounds Percussion/Palpation: + abdomen tender (All over) and abdomen soft; no guarding Musculoskeletal: No acute arthritis involving any joints Neurologic: moves all extremities; no focal motor deficits Results & Data Results & Data ([facility]) Vital Signs (Past 12 Hours) Vital Signs Temp Pulse Pulse Resp BP Pulse Ox 11/02/19 15:00 36.8 C 61 19 117/77 97 11/02/19 11:49 36.9 C 61 18 146/87 H 97 11/02/19 07:30 36.5 C 66 20 117/78 100 11/02/19 07:24 59 L 11/02/19 04:09 36.8 C 65 18 101/66 98 Laboratory Results Short CBC 11/02/19 Range/Units 07:09 WBC 9.67 (4.8-10.8) K/uL Hgb 9.0 L (12.0-16.0) g/dL Hct 28.6 L (37-47) % Plt Count 483 H (130-400) K/uL BMP 11/02/19 07:09 Sodium 138 Potassium 4.4 Chloride 104 Carbon Dioxide 30 BUN 3 L Creatinine 0.55 L Glucose 117 H Calcium 9.0 Liver Function 11/02/19 Range/Units 07:09 Total Bilirubin 0.3 (0.2-1) mg/dl AST 6 L (15-37) U/L ALT 10 L (12-78) U/L Alkaline Phosphatase 58 (45-117) U/L Albumin 2.3 L (3.4-5.0) gm/dl Medications Administered Current Inpatient Medications Acetaminophen (Acetaminophen 1000 Mg/100 Ml Iv) 1,000 mg IV Q8H PRN PRN Reason: Pain Stop: 11/03/19 17:37 Last Admin: 10/31/19 17:50 Dose: 1,000 mg Documented by: Ferrous Sulfate (Ferrous Sulfate 325 Mg Tab) 325 mg PO DAILY MARV Stop: 12/01/19 08:59 Hydromorphone HCl (Hydromorphone Inj 0.5 Mg/0.5 Ml Syr) 0.5 mg IV Q4H PRN PRN Reason: Pain Stop: 11/16/19 10:41 Potassium Chloride/Sodium Chloride (Normal Saline W/20 Meq Kcl) 20 meq in 1,000 mls @ 80 mls/hr IV .[id number] MARV Stop: 11/30/19 17:44 Last Admin: 11/02/19 05:37 Dose: 80 mls/hr Documented by: Methylprednisolone 20 mg/ (Syringe) 0.32 mls @ 1.5 mls/min IV Q8H [facility] Stop: 11/30/19 17:44 Last Admin: 11/02/19 09:36 Dose: 1.5 mls/min Documented by: Ondansetron HCl (Ondansetron Inj 2 Mg/Ml 2 Ml Vial) 4 mg IV Q6H PRN PRN Reason: Nausea Stop: 11/30/19 17:26 Tramadol HCl (Tramadol Hcl 50 Mg Tablet) 50 mg PO Q8H PRN PRN Reason: Pain Stop: 11/30/19 21:52 Last Admin: 11/01/19 09:06 Dose: 50 mg Documented by:
[2019-11-03] MEDS: methylPREDNISolone 20 MG in SYRINGE 0 ML IV SCH ×2 (01:29→10:02)
[2019-11-03] MEDS: NSS + 20MEQ KCL 20 MEQ/1,000 ML BAG IV SCH (06:09)
[2019-11-03] MEDS: TRAMADOL HCL 50 MG TABLET PO PRN (06:10)
[2019-11-03 08:16] LABS: Basophils # (auto) 0.01 K/uL (0-0.2); Basophils % (auto) 0.1 %; Hematocrit (blood only) 31.1 % (37-47); Hemoglobin 9.6 g/dL (12.0-16.0); Immature Granulocytes # (auto) 0.05 K/uL (0.00-0.02); Immature Granulocytes % (auto) 0.5 %; Lymphocytes # (auto) 1.32 K/uL (1.2-3.4); Lymphocytes % (auto) 13.9 %; Mean Corpuscular Hemoglobin 25.4 pg (25-34); Mean Corpuscular Hgb Conc 30.9 g/dL (32-36); Mean Corpuscular Volume 82.3 fL (80-100); Monocytes # (auto) 0.76 K/uL (0.11-0.59); Neutrophils # (auto) 7.36 K/uL (1.4-6.5); Neutrophils % (auto) 77.5 %; Platelet Count 583 K/uL (130-400); RDW Coefficient of Variation 13.4 % (11.5-14.5); RDW Standard Deviation 40.8 fL (36.4-46.3); Red Blood Count 3.78 M/uL (4.2-5.4)
[2019-11-03 08:57] LABS: Alanine Aminotransferase 12 U/L (12-78); Albumin Level 2.7 gm/dl (3.4-5.0); Aspartate Aminotransferase 8 U/L (15-37); BUN Creatinine Ratio 7.1 (10-20); Blood Urea Nitrogen 4 mg/dl (7-18); Calcium 9.4 mg/dl (8.5-10.1); Carbon Dioxide 30 mmol/L (21-32); Chloride 99 mmol/L (98-107); Creatinine Clr Calc Pharmacy 123.3 ml/min; Est GFR (African American) > 150.0; Est GFR (Non-African American) 132.1; Glucose 111 mg/dl (70-99); Magnesium 2.2 mg/dl (1.8-2.4); Sodium 136 mmol/L (136-145)
[2019-11-03 09:00] LABS: Albumin Globulin Ratio 0.6 (0.9-2); Alkaline Phosphatase 63 U/L (45-117); Bilirubin,Total 0.2 mg/dl (0.2-1); Globulin 4.3 gm/dl (2.5-4.0)
--- NOTE | 2019-11-03 09:08 | Gastroenterology Progress Note ---
Date of Service November 03, 2019 Assessment & Plan (1) Ulcerative colitis, acute: 18 year old female with a PMH of ulcerative colitis, asthma, ADHD who presents from GI clinic with ulcerative colitis flare, failed outpatient therapy. CT w/ active inflammatory changes, CRP of 9, ESR of 42 w/ ongoing liquidy/loose bloody bowel movements daily with associated diffuse lower aching abdominal pain, low grade fever and chills. - C diff negative - Culture pending - Can continue solumedrol 20mg Q8H - Please send home on a slow taper as we start to initiate humira - 40 mg x 3 weeks then can decrease by 5 mg weekly - Would convert to PO steroids after 11/04/19 - Low residue diet as tolerated - Antiemetics - PO analgesia - Can trial Levsin QID - Continue with plan to start OP humira, I contacted our nurses as this was approved and to be delivered /wednesday to set up injection teaching Will sign off. Can be discharged home if tolerates diet advancement Thank you for allowing us to participate in the care of this patient. Please call with any acute changes, questions or concerns. Please see addendum below with additional recommendation from my supervising physician. Admission and Anticipated Discharge Date Admission Date: October 31, 2019 Supervising Physician Co-Signing Physician Notes I have personally seen and examined the patient with KEY Aguilar. Her note reflects my exam and findings. I agree with her impression and plan. Steroid taper and start biologic as soon as possible. Spencer To M.D. Subjective Symptoms improving Semi-formed stools Two BMs overnight One BM this AM Some BRB No black stools Abd pain is also improving but still present No fever, chills, CP, SOB Review of Systems Constitutional: no fever and no fatigue Respiratory: no cough and no dyspnea Cardiovascular: no chest pain and no dyspnea Gastrointestinal: + abdominal pain, + diarrhea/loose stools and + blood in stools Physical Exam Constitutional: WD/WN, vitals as above Neck: trachea midline Respiratory: normal respiratory effort Cardiovascular: Rate/Rhythm: regular rate Gastrointestinal (Abdomen): Percussion/Palpation: + abdomen tender and abdomen soft Skin: no rashes, warm and dry Results & Data ([facility]) Vital Signs (Past 12 Hours) Vital Signs Temp Pulse Pulse Resp BP Pulse Ox 11/03/19 07:27 79 11/03/19 07:21 36.6 C 59 L 18 110/73 97 11/03/19 04:00 36.8 C 71 18 121/77 98 11/03/19 01:12 49 L 11/03/19 00:25 36.9 C 74 18 117/74 94 Laboratory Results 11/03/19 11/03/19 11/02/19 Range/Units 07:25 07:25 07:09 WBC 9.50 (4.8-10.8) K/uL RBC 3.78 L (4.2-5.4) M/uL Hgb 9.6 L (12.0-16.0) g/dL Hct 31.1 L (37-47) % MCV 82.3 (80-100) fL MCH 25.4 (25-34) pg MCHC 30.9 L (32-36) g/dL RDW Std Deviation 40.8 (36.4-46.3) fL RDW Coeff of Daryl 13.4 (11.5-14.5) % Plt Count 583 H (130-400) K/uL MPV 8.0 (7.4-10.4) fL Immature Gran % (Auto) 0.5 % Neut % (Auto) 77.5 % Lymph % (Auto) 13.9 % [place] % (Auto) 8.0 % Eos % (Auto) 0.0 % Baso % (Auto) 0.1 % Neut # (Auto) 7.36 H (1.4-6.5) K/uL Lymph # (Auto) 1.32 (1.2-3.4) K/uL [place] # (Auto) 0.76 H (0.11-0.59) K/uL Eos # (Auto) 0.00 (0-0.5) K/uL Baso # (Auto) 0.01 (0-0.2) K/uL Immature Gran # (Auto) 0.05 H (0.00-0.02) K/uL Sodium 136 (136-145) mmol/L Potassium 4.0 (3.5-5.1) mmol/L Chloride 99 (98-107) mmol/L Carbon Dioxide 30 (21-32) mmol/L Anion Gap 7.0 (3-11) BUN 4 L (7-18) mg/dl Creatinine 0.60 (0.6-1.2) mg/dl Est Cr Clr Drug Dosing 123.3 ml/min Est GFR ( Amer) > 150.0 Est GFR (Non-Af Amer) 132.1 BUN/Creatinine Ratio 7.1 L (10-20) Glucose 111 H (70-99) mg/dl Calcium 9.4 (8.5-10.1) mg/dl Magnesium 2.2 (1.8-2.4) mg/dl Total Bilirubin 0.2 0.3 (0.2-1) mg/dl AST 8 L (15-37) U/L ALT 12 (12-78) U/L Alkaline Phosphatase 63 58 (45-117) U/L Total Protein 7.0 6.1 L (6.4-8.2) gm/dl Albumin 2.7 L (3.4-5.0) gm/dl Globulin 4.3 H 3.8 (2.5-4.0) gm/dl Albumin/Globulin Ratio 0.6 L 0.6 L (0.9-2)
--- NOTE | 2019-11-03 10:55 | Hospitalist Progress Note ---
Date of Service November 03, 2019 Assessment & Plan (1) Ulcerative colitis, acute: This is a 18 yo F with a PMH of ulcerative colitis, asthma, ADHD who presents from GI clinic with ulcerative colitis flare. Diagnosed in February following colonoscopy and biopsy She does not have any extraintestinal manifestations of ulcerative colitis [place] significantly worse over the past 3 weeks despite being placed on prednisone taper. Afebrile, no leukocytosis, CRP of 9, ESR of 42 C diff negative and stool cultures have been negative Started IV Solumedrol 20mg Q8H, per GI recommendation. CTAP with no evidence of bowel obstruction. No evidence of free air. Persistent but slightly less pronounced diffuse colonic wall thickening, consistent with the clinical history of ulcerative colitis. Has been tolerating regular diet Denies any significant abdominal discomfort and her bowel has been moving She is ambulating in the room without any symptoms She will be discharged this afternoon on oral prednisone 40 mg daily for 3 weeks and then decrease by 5 mg weekly She will have Humira to be started as an outpatient. (2) Acute hypokalemia: Initial K of 2.8 in setting of GI losses. Given 10mEq K rider in ED + 60 mEq oral KCl. Current potassium 4.4 (3) Anemia: Hgb of 10.8 on admission (recent baseline hgb extremely variable from 6-12 in setting of UC). Monitor H&H, current hemoglobin 9.1 (4) Asthma: At respiratory baseline. Does not use home inhalers at this time No acute symptoms DVT Ppx: meliza redd Code status: FULL PCP: Recently established with [facility] Plan to return home once medically stable. Discharge home this afternoon Admission and Anticipated Discharge Date Admission Date: October 31, 2019 Subjective 11/02/2019 The patient was seen and examined in medical floor She has been complaining of abdominal pain with ongoing diarrhea and some blood in it Denies any nausea and or vomiting 11/03/19 Patient was seen and examined in medical floor She has been feeling a lot better today Denies any significant abdominal discomfort and has been moving bowel normally No more bloody diarrhea Review of Systems Review of Systems: All systems reviewed and are unremarkable except as noted below Gastrointestinal: + abdominal pain (Very minimal discomfort); no bloating, no nausea, no vomiting, no diarrhea/loose stools and no blood in stools Physical Exam Physical Exam: Sitting at the edge of the bed without any acute distress Constitutional: well developed and well nourished; no acute distress (Due to abdominal discomfort) and not ill appearing Eyes: PERRL, conjunctivae normal, anicteric sclerae ENMT: external ear and nose normal, oropharynx normal Neck: trachea midline, no thyromegaly Respiratory: normal respiratory effort and + respiratory distress Auscultation: lungs clear to auscultation bilaterally Cardiovascular: Rate/Rhythm: regular rate and regular rhythm Heart Sounds: no murmur Gastrointestinal (Abdomen): Inspection/Auscultation: normal bowel sounds; abdomen not distended (Minimally distended) Percussion/Palpation: abdomen soft; abdomen nontender (All over) and no guarding Neurologic: moves all extremities; no focal motor deficits Results & Data Results & Data ([facility]) Vital Signs (Past 12 Hours) Vital Signs Temp Pulse Pulse Resp BP Pulse Ox 11/03/19 07:27 79 11/03/19 07:21 36.6 C 59 L 18 110/73 97 11/03/19 04:00 36.8 C 71 18 121/77 98 11/03/19 01:12 49 L 11/03/19 00:25 36.9 C 74 18 117/74 94 Laboratory Results Short CBC 11/03/19 Range/Units 07:25 WBC 9.50 (4.8-10.8) K/uL Hgb 9.6 L (12.0-16.0) g/dL Hct 31.1 L (37-47) % Plt Count 583 H (130-400) K/uL BMP 11/03/19 07:25 Sodium 136 Potassium 4.0 Chloride 99 Carbon Dioxide 30 BUN 4 L Creatinine 0.60 Glucose 111 H Calcium 9.4 Liver Function 11/03/19 Range/Units 07:25 Total Bilirubin 0.2 (0.2-1) mg/dl AST 8 L (15-37) U/L ALT 12 (12-78) U/L Alkaline Phosphatase 63 (45-117) U/L Albumin 2.7 L (3.4-5.0) gm/dl Medications Administered Current Inpatient Medications Acetaminophen (Acetaminophen 1000 Mg/100 Ml Iv) 1,000 mg IV Q8H PRN PRN Reason: Pain Stop: 11/03/19 17:37 Last Admin: 10/31/19 17:50 Dose: 1,000 mg Documented by: Ferrous Sulfate (Ferrous Sulfate 325 Mg Tab) 325 mg PO DAILY MARV Stop: 12/01/19 08:59 Hydromorphone HCl (Hydromorphone Inj 0.5 Mg/0.5 Ml Syr) 0.5 mg IV Q4H PRN PRN Reason: Pain Stop: 11/16/19 10:41 Potassium Chloride/Sodium Chloride (Normal Saline W/20 Meq Kcl) 20 meq in 1,000 mls @ 80 mls/hr IV .[id number] MARV Stop: 11/30/19 17:44 Last Admin: 11/03/19 06:09 Dose: 80 mls/hr Documented by: Methylprednisolone 20 mg/ (Syringe) 0.32 mls @ 1.5 mls/min IV Q8H MARV Stop: 11/30/19 17:44 Last Admin: 11/03/19 10:02 Dose: 1.5 mls/min Documented by: Ondansetron HCl (Ondansetron Inj 2 Mg/Ml 2 Ml Vial) 4 mg IV Q6H PRN PRN Reason: Nausea Stop: 11/30/19 17:26 Tramadol HCl (Tramadol Hcl 50 Mg Tablet) 50 mg PO Q8H PRN PRN Reason: Pain Stop: 11/30/19 21:52 Last Admin: 11/03/19 06:10 Dose: 50 mg Documented by:
--- NOTE | 2019-11-04 08:32 | Discharge Summary ---
Date of Service November 04, 2019 Admission HPI Per Admitting Provider This is a 18yo F with a PMH of ulcerative colitis, asthma, ADHD who presents from GI clinic with ulcerative colitis flare. Patient has felt significantly worse over the past 3 weeks despite being placed on prednisone taper. Endorses 10-12 episodes of liquid and loose bloody bowel movements daily with associated diffuse lower aching abdominal pain, low grade fever and chills. Also with continued poor appetite with nausea and vomiting when she does try to eat. GI service plans to start Humira. Of note, some concern from OP providers that 30 lbs weight loss may be due to the eating disorder but that patient denies any eating disorder behavior and states that she feels that her weight loss is from her UC. Endorsing diffuse abdominal pain and generalized weakness. Denies headache, lightheadedness, visual changes, chest pain, palpitations, shortness of breath, dysuria or constipation. Admission Exam Per Admitting Provider Physical Exam: General Appearance: vitals as above, thin, chronically ill appearing, conversing easily Head: normocephalic, atraumatic Eyes: normal inspection, PERRL, conjunctivae normal, anicteric sclerae ENT: external ear and nose normal, oropharynx normal Neck: normal visual inspection, trachea midline, no thyromegaly Respiratory: normal respiratory effort, lungs clear to auscultation, no wheeze, rales, rhonchi. No accessory muscle use Cardiovascular: regular rate, rhythm, no murmur, normal peripheral pulses, no BLE edema. Vessels: no JVD Chest: normal inspection of chest Abdomen/GI: normal bowel sounds, soft, TTP of LLQ and RLQ, no guarding, no hepatosplenomegaly Extremities/Musculoskeletal: no cyanosis or clubbing, extremities motor strength 5/5 Neurologic: PERRL, EOMI, accommodation nl, no face palsy, no dysarthria, CN's II-XI intact bilaterally and moves all extremities Psychiatric: A+Ox3, +anxious Skin: no rashes, normal color, warm/dry Principal Diagnosis Acute flare of ulcerative colitis, controlled asthma, chronic anemia Discharge Exam Constitutional well developed and well nourished; no acute distress (Due to abdominal discomfort) and not ill appearing Eyes PERRL, conjunctivae normal, anicteric sclerae ENMT external ear and nose normal, oropharynx normal Neck trachea midline, no thyromegaly Respiratory normal respiratory effort and + respiratory distress Auscultation: lungs clear to auscultation bilaterally Cardiovascular Rate/Rhythm: regular rate and regular rhythm Heart Sounds: no murmur Gastrointestinal (Abdomen) Inspection/Auscultation: normal bowel sounds; abdomen not distended (Minimally distended) Percussion/Palpation: abdomen soft; abdomen nontender (All over) and no guarding Neurologic moves all extremities; no focal motor deficits Discharge Data Allergies Allergy/AdvReac Type Severity Reaction Status Date / Time animal dander Allergy Intermediate ITCHY Verified 10/31/19 12:58 EYES, SNEEZING, CONGESTION tree and shrub pollen Allergy Intermediate ITCHY Verified 10/31/19 12:58 EYES, SNEEZING, CONGESTION DUST Allergy Intermediate ITCHY Uncoded 10/31/19 12:58 EYES, SNEEZING, CONGESTION Consultations 10/31/19 15:20 ED Decision to Admit Stat 10/31/19 17:27 Consult Gastroenterology Routine Ordered Studies 10/31/19 13:24 CT abd pelvis IV con only Stat Hospital Course (1) Ulcerative colitis, acute: This is a 18 yo F with a PMH of ulcerative colitis, asthma, ADHD who presents from GI clinic with ulcerative colitis flare. Diagnosed in February following colonoscopy and biopsy She does not have any extraintestinal manifestations of ulcerative colitis [place] significantly worse over the past 3 weeks despite being placed on prednisone taper. Afebrile, no leukocytosis, CRP of 9, ESR of 42 C diff negative and stool cultures have been negative Started IV Solumedrol 20mg Q8H, per GI recommendation. CTAP with no evidence of bowel obstruction. No evidence of free air. Persistent but slightly less pronounced diffuse colonic wall thickening, consistent with the clinical history of ulcerative colitis. Has been tolerating regular diet Denies any significant abdominal discomfort and her bowel has been moving She is ambulating in the room without any symptoms She will be discharged this afternoon on oral prednisone 40 mg daily for 3 weeks and then decrease by 5 mg weekly She will have Humira to be started as an outpatient. (2) Acute hypokalemia: Initial K of 2.8 in setting of GI losses. Given 10mEq K rider in ED + 60 mEq oral KCl. Current potassium 4.4 (3) Anemia: Hgb of 10.8 on admission (recent baseline hgb extremely variable from 6-12 in setting of UC). Monitor H&H, current hemoglobin 9.1 (4) Asthma: At respiratory baseline. Does not use home inhalers at this time No acute symptoms DVT Ppx: meliza redd Code status: FULL PCP: Recently established with [facility] Dispo: Admitted to [facility]. Plan to return home once medically stable. Discharge home this afternoon Total Time Total Time Spent Total Time Spent (In Minutes): 35 minutes Total Time Includes: Examination of the Patient, Discharge Planning, Medication Reconciliation and Communication With Other Providers Discharge Plan Discharge Items Patient Disposition: Home - Self-Care Reason For Visit: UC FLARE Discharge Diagnosis: Acute flare of ulcerative colitis, controlled asthma, chronic anemia Condition on Discharge: Good Activity: Resume your previous activity Non-emergency contact: Primary Care Provider Call non-emergency contact if: you have any medication questions and your symptoms worsen Follow-up/Referrals: [facility] [Provider Group] - 11/10/19 11:00 am (Your appointment is with Dr. Shelley at [facility]. You saw him before. [facility] gastroenterology will call you with appointment) [facility] [Primary Care Provider] - Diet: Regular and Low Fiber Addtl Attending Provider Instructions: Try to avoid fresh fruits, vegetables and Salad Continue prednisone 40 mg daily for next 2 weeks and your gastroenterology specialist will taper it gradually after 14 days. Pending Studies at Discharge: No Stand-Alone Forms: My [facility], Smoking Cessation Medications and DC Order Prescriptions: New prednisone 20 mg tablet 40 mg PO DAILY Qty: 30 RF: 0 tramadol [Ultram] 50 mg tablet 50 mg PO Q8H PRN (Reason: pain) Qty: 14 RF: 0 Continued ferrous sulfate [iron] 325 mg (65 mg iron) Tablet 325 mg PO DAILY RF: 0 hydrocortisone 100 mg/60 mL enema 100 mg KS HS RF: 0 ondansetron 4 mg tablet,disintegrating 4 mg PO UD RF: 0 dicyclomine 10 mg capsule 10 mg PO TID RF: 0 Discontinued prednisone 10 mg tablet 10 mg PO .TAPER RF: 0 Discharge Orders: Discharge Order (Routine); Ordered 11/03/19 Ordered By: Gigi Cowan/Other Patient Handouts: Low-Fiber Diet Admission Data Admit Date/Time: 10/31/19 15:30 Attending Provider: Gigi Brown Admit Provider: Simba Loomis Primary Care Provider: [facility] Other Providers: Simba Loomis ; Spencer To ; Ravinder Carias Other Interventions: Discharge Summary Assessment (RN) Last Done: 11/03/19 13:47
== END 2019-11-03 14:31 | disposition home or self-care (01) | DRG 387 ==
LOC: ED 10:57 → 2W 15:30 → SUATTDRO 15:30 → 2W 16:58